=== PATIENT | male | born 1980 | race Caucasian/White ===

== ENCOUNTER 2022-11-05 17:32 | Emergency (ER) | payer BC, SELFPAY ==
[2022-11-05 18:26] VITALS: BP 124/96; PULSE 88; RESP 20; TEMP 36.4; O2SAT 98
[2022-11-05 18:46] LABS: Basophils Absolute Auto 0.1 K/mm3 (0.0-0.1); Basophils Percent Auto 0.5 % (0.2-1.2); Eosinophils Absolute Auto 0.1 K/mm3 (0-0.3); Eosinophils Percent Auto 0.7 % (0-4.4); Hematocrit 50.5 % (42.0-52.0); Hemoglobin 17.1 g/dL (14.0-18.0); Immature Granulocyte Absolute 0.07 K/mm3 (0.00-0.031); Immature Granulocyte Percent A 0.5 % (0-0.5); Lymphocytes Absolute Auto 3.26 K/mm3 (0.9-3.2); Mean Corpuscular HGB Conc 33.9 g/dl (32-36); Mean Corpuscular Hemoglobin 31.7 pg (26-34); Mean Corpuscular Volume 93.5 fl (80-100); Mean Platelet Volume 9.9 fl (7.4-10.4); Monocytes Percent Auto 7.4 % (2.6-8.5); Neutrophils Absolute Auto 8.6 K/mm3 (1.3-6.7); Neutrophils Percent Auto 65.9 % (45.5-73.1); Platelet Count Result 330 k/mm3 (150-375); Red Cell Distribution Width 12.5 % (11.5-14.5); White Blood Count 13.1 K/mm3 (4.5-10.0)
[2022-11-05 19:00] LABS: Alanine Aminotransferase 45 U/L (6-50); Albumin Level 5.5 g/dL (3.5-5.1); Alkaline Phosphatase 73 U/L (38-126); Anion Gap 16 mmol/L (8-16); Aspartate Amino Transferase 36 U/L (17-59); Bilirubin,Total 0.9 mg/dL (0.2-1.3); Blood Urea Nitrogen 28 mg/dL (9-20); Carbon Dioxide 23 mmol/L (22-30); Chloride 97 mmol/L (98-107); Estimated CRCL calculation 47 ml/min; Estimated Glomerular Filt Rate 35; Glucose 92 mg/dL (65-110); Sodium 136 mmol/L (137-145)
[2022-11-05 19:13] LABS: Appearance Urine Clear (Clear); Bacteria Urine None Seen /hpf; Bilirubin Urine Negative (Negative); Blood Urine 1+ (Negative); Color Urine Yellow (Yellow); Glucose Urine UA Negative (Negative); Ketones Urine Negative (Negative); Leukocyte Esterase Ur Trace LEU/UL (Negative); Nitrate Urine Negative (Negative); Non Pathogenic Casts 0-2; Protein Urine Negative (Negative); Specific Grav Ur 1.027 (1.001-1.035); Squamous Epithelial Cell Urine Few /hpf (Few); Urobilinogen Urine 0.2 mg/dL (<2.0)
[2022-11-05 19:14] LABS: Add Urine Microscopic? YES
[2022-11-05] MEDS: SODIUM CHLORIDE 0.9% IV 1,000 ML 999 ML IV CONT ×3 (19:36→20:22)
[2022-11-05 19:45] LABS: Creatine Kinase 135 U/L (55-170)
--- NOTE | 2022-11-05 20:15 | ED.GENADULT ---
HPI - General Adult General Chief complaint: Unspecified Stated complaint: body cramps, heat exposure, decreased urination Time Seen by Provider: 11/05/22 19:27 History of Present Illness HPI narrative: 42-year-old male with no significant past medical history presented the emergency department for evaluation of dehydration. Patient reports that he has been working out in the sun the last 2 days. Patient has been drinking a lot of water and Gatorade but states he has had decreased urinary output. Patient denies any muscle cramping but did have some fasciculations of his legs. Patient denies any chest pain or shortness of breath. Patient did make urine upon arrival to the ED. Related Data Allergies Allergy/AdvReac Type Severity Reaction Status Date / Time No Known Allergies Allergy Verified 11/05/22 19:35 Review of Systems Review of Systems: All systems reviewed & are unremarkable except as noted in HPI and below Exam Narrative: APPEARANCE: Well appearing, no pain, no distress, well-nourished. HEAD: normocephalic, atraumatic. EYES: PERRLA/EOMI, conjunctivae clear. NOSE: Normal no drainage EARS:TMS clear with good light reflex. THROAT: Pharynx clear, no exudate. NECK: Supple. No adenopathy, no masses. RESPIRATORY: Airway patent, respirations nonlabored. Clear to auscultation bilaterally, no rales, rhonchi, wheezing. CARDIOVASCULAR: Regular rate and rhythm without murmurs rubs or gallops. ABDOMINAL: Soft, nontender, nondistended, normal bowel sounds MUSCULOSKELETAL: Moves all extremities. Strength/ROM intact, No edema, No calf tenderness. NEURO: Alert. Cranial nerves II through XII intact. SKIN: Warm, dry. Normal Color Course Course Emergency Course: 42-year-old male presented ED for evaluation of dehydration. Patient was afebrile with no tachycardia. Patient was treated with multiple liters of fluid and did feel improved. Patient's CK was not significantly elevated. Patient was updated on his elevated creatinine and was offered admission for further rehydration and patient declined. Patient was agreeable to taking a day off work tomorrow to continue rehydrating. Patient was educated on reasons to return to the emergency department. Patient is from out of town and will have follow-up with his primary care physician when he gets back home. Vital Signs Vital signs: Vital Signs Temperature 97.6 F 11/05/22 18:26 Pulse Rate 88 11/05/22 18:26 Respiratory Rate 20 11/05/22 18:26 Blood Pressure 124/96 H 11/05/22 18:26 Pulse Oximetry 98 11/05/22 18:26 Oxygen Delivery Room Air 11/05/22 18:26 Temperature 97.6 F 11/05/22 18:26 Pulse Rate 72 11/05/22 20:52 Respiratory Rate 18 11/05/22 20:52 Blood Pressure 125/81 11/05/22 20:52 Pulse Oximetry 100 11/05/22 20:52 Oxygen Delivery Room Air 11/05/22 18:26 Medical Decision Making Differential Diagnosis Differential Diagnosis: Dehydration, JOJO, fasciculations, abdominal cramping Vital Signs Vital Signs: Vital Signs Temperature 97.6 F 11/05/22 18:26 Pulse Rate 88 11/05/22 18:26 Respiratory Rate 20 11/05/22 18:26 Blood Pressure 124/96 H 11/05/22 18:26 Pulse Oximetry 98 11/05/22 18:26 Oxygen Delivery Room Air 11/05/22 18:26 Temperature 97.6 F 11/05/22 18:26 Pulse Rate 72 11/05/22 20:52 Respiratory Rate 18 11/05/22 20:52 Blood Pressure 125/81 11/05/22 20:52 Pulse Oximetry 100 11/05/22 20:52 Oxygen Delivery Room Air 11/05/22 18:26 Lab Data Lab results reviewed: Yes I reviewed the patient's lab results. 11/05/22 18:34 11/05/22 18:34 Labs: Lab Results 11/05/22 11/05/22 Range/Units 18:34 19:02 WBC 13.1 H (4.5-10.0) K/mm3 RBC 5.40 (4.6-6.20) M/mm3 Hgb 17.1 (14.0-18.0) g/dL Hct 50.5 (42.0-52.0) % MCV 93.5 (80-100) fl MCH 31.7 (26-34) pg MCHC 33.9 (32-36) g/dl RDW 12.5 (11.5-14.5) % Plt Count 330 (150-375) k/
[2022-11-05 20:52] VITALS: BP 125/81; PULSE 72; RESP 18; O2SAT 100
== END 2022-11-05 20:52 | disposition home or self-care (01) ==
PROVIDERS: Emergency Medicine; Emergency Provider Emergency Medicine
DX: N17.9 Acute kidney failure, unspecified (principal); E86.0 Dehydration
CPT/HCPCS: 36415; 80053; 81001; 82550; 85025; 87086; 87088; 96360; 99283; J7030